=== PATIENT | male | born 1940 | race Caucasian/White ===

== ENCOUNTER 2022-10-04 09:36 | Inpatient (IN) | payer OTHER ==
[2022-10-04] VITALS (10 sets, daily range): BP systolic 92–136; PULSE 83–110; RESP 16–22; TEMP 97.2–98.1; O2SAT 91–96
[~2022-10-04] VITALS: Ht 157.5 cm; Wt 67.6 kg
[2022-10-04] MEDS ORDERED: KETOROLAC TROMETHAMINE 15 MG VIAL IVP ONE (10:15)
[2022-10-04 10:39] LABS: BASOPHILS # (AUTO) 0.1 K/uL (0.0-0.2); BASOPHILS % (AUTO) 0.8 % (0.0-2.0); EOSINOPHILS % (AUTO) 0.2 % (0.0-4.0); HEMATOCRIT 27.5 % (36-54); LYMPHOCYTES # (AUTO) 0.8 K/uL (1.0-5.5); LYMPHOCYTES % (AUTO) 4.9 % (20.5-51.5); MEAN CORPUSCULAR HEMOGLOBIN 31 pg (27-31); MEAN CORPUSCULAR HGB CONC 33 % (32-36); MEAN CORPUSCULAR VOLUME 95 fL (79.0-98.0); MONOCYTES # (AUTO) 0.8 K/uL (0.0-1.0); MONOCYTES % (AUTO) 5.2 % (1.7-9.3); NEUTROPHILS # (AUTO) 14.1 K/uL (1.8-7.7); NEUTROPHILS % (AUTO) 88.9 % (40.0-70.0); PLATELET COUNT (AUTO) 437 K/uL (130-430); RED BLOOD CELL COUNT(AUTO) 2.88 MIL/uL (4.2-6.2); RED CELL DISTRIBUTION WIDTH 14.7 % (9.0-15.0); WHITE BLOOD COUNT (AUTO) 15.8 K/uL (4.8-10.8)
[2022-10-04 10:59] LABS: ALANINE AMINOTRANSFERASE 20 U/L (12-78); ANION GAP 10 (5-15); ASPARTATE AMINOTRANSFERASE 19 U/L (10-37); CALCIUM 8.6 mg/dL (8.4-11.0); CHLORIDE 100 mmol/L (98-107); CREATININE 1.42 mg/dL (0.55-1.30); GLUCOSE 175 mg/dL (70-99); TOTAL BILIRUBIN 0.6 mg/dL (0.0-1.0); UREA NITROGEN, BLOOD 32 mg/dL (8-21)
[2022-10-04 11:01] LABS: LIPASE 68 U/L (73-393)
[2022-10-04] MEDS ORDERED: cefTRIAXone 1 GM IVPB PREMIX 50 ML IV ONE (11:45)
[2022-10-04] MEDS ORDERED: iohexoL 350 mgI/mL, 100 ML INFUS..BTL IV ONE (11:49)
[2022-10-04] MEDS ORDERED: METF-1069 PO (12:39)
[2022-10-04] MEDS ORDERED: ASA81 PO (12:39)
[2022-10-04] MEDS ORDERED: FINA5TAB3 PO (12:39)
[2022-10-04] MEDS ORDERED: LIP40 PO (12:39)
[2022-10-04] MEDS ORDERED: TAMS-11 PO (12:39)
[2022-10-04] MEDS ORDERED: METO25TA3 PO (12:39)
[2022-10-04] MEDS ORDERED: NOR10 PO (12:39)
[2022-10-04 14:49] LABS: INR 1.2 (0.80-1.20); PROTHROMBIN TIME 11.9 SECS (9.5-12.5)
[2022-10-04] MEDS: ALBUTEROL SULFATE 0.083% 2.5 MG/3 ML VIAL.NEB INH SCH ×2 (19:58→23:07)
[2022-10-05] VITALS (10 sets, daily range): BP systolic 128–142; PULSE 78–110; RESP 16–20; TEMP 96.8–98; O2SAT 93–100
[2022-10-05] MEDS: 0.45% NACL 1,000 ML IV SCH ×3 (01:20→23:42)
[2022-10-05] MEDS: ALBUTEROL SULFATE 0.083% 2.5 MG/3 ML VIAL.NEB INH SCH ×5 (03:00→23:04)
[2022-10-05 06:22] LABS: BASOPHILS # (AUTO) 0.1 K/uL (0.0-0.2); BASOPHILS % (AUTO) 0.6 % (0.0-2.0); EOSINOPHILS # (AUTO) 0.1 K/uL (0.0-0.4); HEMATOCRIT 25.9 % (36-54); HEMOGLOBIN 8.5 g/dL (14.0-18.0); LYMPHOCYTES # (AUTO) 1.5 K/uL (1.0-5.5); LYMPHOCYTES % (AUTO) 10.1 % (20.5-51.5); MEAN CORPUSCULAR HEMOGLOBIN 31 pg (27-31); MEAN CORPUSCULAR HGB CONC 33 % (32-36); MEAN CORPUSCULAR VOLUME 95 fL (79.0-98.0); MONOCYTES # (AUTO) 1.3 K/uL (0.0-1.0); MONOCYTES % (AUTO) 8.4 % (1.7-9.3); NEUTROPHILS % (AUTO) 79.9 % (40.0-70.0); PLATELET COUNT (AUTO) 422 K/uL (130-430); RED BLOOD CELL COUNT(AUTO) 2.75 MIL/uL (4.2-6.2); RED CELL DISTRIBUTION WIDTH 14.4 % (9.0-15.0)
[2022-10-05 06:38] LABS: ANION GAP 10 (5-15); CALCIUM 8.1 mg/dL (8.4-11.0); CHLORIDE 101 mmol/L (98-107); CREATININE 1.23 mg/dL (0.55-1.30); GLUCOSE 113 mg/dL (70-99); UREA NITROGEN, BLOOD 29 mg/dL (8-21)
[2022-10-05] MEDS: FINASTERIDE 5 MG TABLET (PROSCAR) PO SCH (08:43)
[2022-10-05] MEDS: ATORVASTATIN 20 MG TABLET PO SCH (08:43)
[2022-10-05] MEDS: amLODIPine BESYLATE 10 MG TABLET PO SCH (08:43)
[2022-10-05] MEDS: TAMSULOSIN HCL 0.4 MG CAP PO SCH (08:43)
[2022-10-05] MEDS: METOPROLOL SUCCINATE 25 MG TAB.SR.24H (TOPROL XL) PO SCH (08:45)
[2022-10-05] MEDS: cefTRIAXone 1 GM IVPB PREMIX 50 ML IV SCH (11:46)
[2022-10-05] MEDS ORDERED: LIDOCAINE 1% 10 MG/ML, 20 ML MDV INJ ONE (14:15)
[2022-10-05] MEDS ORDERED: NALOXONE HCL 0.4 MG/ML AMP (NARCAN) IVP PRN (20:15)
[2022-10-05] MEDS ORDERED: HYDROcodone/ACETAMIN 5-325 MG TAB (NORCO/ VICODIN) PO PRN (20:15)
[2022-10-06] VITALS (10 sets, daily range): BP systolic 129–144; PULSE 76–92; RESP 15–18; TEMP 96.6–97.8; O2SAT 92–100
[2022-10-06] MEDS: ALBUTEROL SULFATE 0.083% 2.5 MG/3 ML VIAL.NEB INH SCH ×4 (03:00→15:35)
[2022-10-06] MEDS: TAMSULOSIN HCL 0.4 MG CAP PO SCH (08:41)
[2022-10-06] MEDS: ATORVASTATIN 20 MG TABLET PO SCH (08:43)
[2022-10-06] MEDS: METOPROLOL SUCCINATE 25 MG TAB.SR.24H (TOPROL XL) PO SCH (08:44)
[2022-10-06] MEDS: FINASTERIDE 5 MG TABLET (PROSCAR) PO SCH (08:44)
[2022-10-06] MEDS: amLODIPine BESYLATE 10 MG TABLET PO SCH (08:44)
[2022-10-06] MEDS: 0.45% NACL 1,000 ML IV SCH (08:45)
[2022-10-06] MEDS: cefTRIAXone 1 GM IVPB PREMIX 50 ML IV SCH (11:35)
== END 2022-10-06 16:45 | disposition hospice, home (50) | DRG 189 ==
LOC: SED 09:36 → STU 12:31 → SMU 10-05 11:10
PROVIDERS: ADMIT Specialist; ATTEND Specialist
PROC: 0WJB3ZZ Inspection of Left Pleural Cavity, Percutaneous Approach (ICD-10-PCS; principal; 2022-10-05)
DX: J96.00 Acute respiratory failure, unspecified whether with hypoxia or hypercapnia (principal); C34.90 Malignant neoplasm of unspecified part of unspecified bronchus or lung; J90 Pleural effusion, not elsewhere classified; I10 Essential (primary) hypertension; I25.10 Atherosclerotic heart disease of native coronary artery without angina pectoris; N40.0 Benign prostatic hyperplasia without lower urinary tract symptoms; J44.9 Chronic obstructive pulmonary disease, unspecified; E11.51 Type 2 diabetes mellitus with diabetic peripheral angiopathy without gangrene; Z87.891 Personal history of nicotine dependence
CPT/HCPCS: 32555; 36415; 71045; 71275; 76376; 80048; 80053; 83037; 83605; 83690; 83880; 84484; 85025; 85379; 85610-TC; 85730-TC; 87040; 93005; 94640; 94760; 99285; G0378; J0696; J1885; J2001; J7030; J7613; Q9967